=== PATIENT | male | born 1960 | race African-American/Black ===

== ENCOUNTER 2016-12-05 17:53 | Emergency (ER) | payer OTHER ==
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
== END 2016-12-05 21:25 | disposition home or self-care (01) ==
LOC: CED 17:53 → CFTX 17:53
DX: S99.921A Unspecified injury of right foot, initial encounter (principal); S62.337A Displaced fracture of neck of fifth metacarpal bone, left hand, initial encounter for closed fracture; M19.071 Primary osteoarthritis, right ankle and foot; F17.210 Nicotine dependence, cigarettes, uncomplicated; I10 Essential (primary) hypertension; Y04.0XXA Assault by unarmed brawl or fight, initial encounter; Y92.009 Unspecified place in unspecified non-institutional (private) residence as the place of occurrence of the external cause
CPT/HCPCS: 29125; 73130; 73660; 99283